=== PATIENT | male | born 1995 | race Caucasian/White ===

== ENCOUNTER 2018-01-30 17:28 | Emergency (ER) | payer OTHER ==
[~2018-01-30] VITALS: Ht 167.6 cm; Wt 58.0 kg
[2018-01-30 17:38] VITALS: Ht 167.6 cm; Wt 58.0 kg
[2018-01-30 19:11] VITALS: BP 146/93
[2018-01-30 19:38] LABS: BASOPHIL % 0.4 % (0-2); PLATELET COUNT 168 x10^3mcL (130-400); RED CELL DISTRIBUTION WIDTH 14.1 % (11.5-14.5)
[2018-01-30 19:42] LABS: AMPHETAMINE QUAL UR POSITIVE (NEG <=1000); CALCIUM 9.7 mg/dL (8.5-10.1); CARBON DIOXIDE 29.9 mmol/L (21-32); CHLORIDE SERUM 102 mmol/L (98-107); GFR1 > 60 mL/min; GLUCOSE SERUM 106 mg/dL (74-106); POTASSIUM SERUM 4.3 mmol/L (3.5-5.1); SODIUM SERUM 138 mmol/L (136-145)
[2018-01-30 19:47] LABS: ALBUMIN 4.2 g/dL (3.4-5.0); ALKALINE PHOSPHATASE 68 U/L (46-116); ALT/SGPT 27 U/L (16-63); AST/SGOT 21 U/L (15-37); BILIRUBIN TOTAL 0.3 mg/dL (0.20-1.00); TOTAL PROTEIN, SERUM 8.4 g/dL (6.4-8.2)
== END 2018-01-30 20:23 | disposition home or self-care (01) ==
LOC: ED 17:28
PROVIDERS: Emergency Medicine
DX: R00.2 Palpitations (principal)
CPT/HCPCS: J2060; J7030

== ENCOUNTER 2018-05-06 00:21 | Emergency (ER) | payer OTHER ==
[~2018-05-06] VITALS: Ht 167.6 cm; Wt 59.4 kg
[2018-05-06 00:57] VITALS: BP 142/93
== END 2018-05-06 00:57 | disposition home or self-care (01) ==
LOC: ED 00:21
DX: S90.562A Insect bite (nonvenomous), left ankle, initial encounter (principal); W57.XXXA Bitten or stung by nonvenomous insect and other nonvenomous arthropods, initial encounter; Y93.89 Activity, other specified; Y92.89 Other specified places as the place of occurrence of the external cause; Y99.8 Other external cause status

== ENCOUNTER 2018-08-09 17:59 | Emergency (ER) | payer OTHER ==
[2018-08-09 18:09] VITALS: Ht 167.6 cm
[2018-08-09 18:50] VITALS: BP 143/80
== END 2018-08-09 18:50 | disposition home or self-care (01) ==
LOC: ED 17:59
DX: R00.2 Palpitations (principal); Z87.19 Personal history of other diseases of the digestive system; F17.200 Nicotine dependence, unspecified, uncomplicated

== ENCOUNTER 2019-07-03 23:37 | Emergency (ER) | payer OTHER ==
[~2019-07-03] VITALS: Ht 170.2 cm; Wt 60.8 kg
[2019-07-03 23:42] VITALS: Ht 170.2 cm; Wt 60.8 kg
[2019-07-04 01:26] VITALS: BP 122/79
== END 2019-07-04 01:26 | disposition home or self-care (01) ==
LOC: ED 23:37
DX: L50.0 Allergic urticaria (principal)